=== PATIENT | male | born 1980 | race Hispanic/Latino ===

== ENCOUNTER 2017-12-25 12:47 | Emergency (ER) | payer OTHER | END 2017-12-25 14:38 | disposition home or self-care (01) | LOC: EDH 12:47 | DX: L02.415 Cutaneous abscess of right lower limb (principal); J45.909 Unspecified asthma, uncomplicated | CPT/HCPCS: 10060 ==

== ENCOUNTER 2018-03-13 08:07 | Emergency (ER) | payer OTHER ==
[2018-03-13] MEDS ORDERED: ONDANSETRON ODT 4 MG TAB ONE (08:39)
[2018-03-13] MEDS ORDERED: KETOROLAC TROMETHAMINE 60 MG/2 ML VIAL ONE (08:39)
[2018-03-13] MEDS ORDERED: CYCLOBENZAPRINE HCL 10 MG TABLET ONE (08:40)
[2018-03-13] MEDS ORDERED: HYDROMORPHONE 1 MG/1 ML AMP ONE (09:52)
== END 2018-03-13 10:12 | disposition home or self-care (01) ==
LOC: EDH 08:07
DX: M54.5 Low back pain (principal); J45.909 Unspecified asthma, uncomplicated; I10 Essential (primary) hypertension
CPT/HCPCS: 72100; 96372 ×2; 99284; J1170; J1885